=== PATIENT | male | born 1960 | race Caucasian/White ===

== ENCOUNTER 2023-04-29 06:50 | Emergency (ER) | payer OTHER, SELFPAY ==
[2023-04-29 07:01] VITALS: BP 182/113
--- NOTE | 2023-04-29 07:05 | ED.CVA ---
History of Present Illness
General
Chief Complaint: CVA/TIA Symptoms
Source: patient and ambulance crew
Exam Limitations: none
Time Seen by Provider: 04/29/23 06:59
Nursing documentation reviewed up to this point in time: agreed with
Onset of Stroke Symptoms
Onset of symptoms known: Yes
Date of onset of symptoms: 04/29/23
Time of onset of symptoms: 01:00
Time pt last seen normal is known: Yes
Date last time pt seen normal: 04/29/23
Time last time pt seen normal: 01:00
History of Present Illness
History of Present Illness:
62 yo female presents to the emergency department c/o left leg weakness, arm weakness, dizziness. Initial dizzy and difficulty walking at 1 am. He went back to bed, unclear if he was back to normal. Then he was dizzy and could not walk.
Past History
Past History
ED Past Medical History: HTN and Hypercholesterolemia
Social History
Tobacco: Non-smoker
Alcohol: Occasional
Drug: None
Living: with family
Review of Systems
Review of Systems
Allergies reviewed?: Yes
All Other Systems: Not applicable
Constitutional: Reports no symptoms
EENT: Reports no symptoms
Respiratory: Reports no symptoms
Cardiac: Reports no symptoms
ABD/GI: Reports no symptoms
: Reports no symptoms
Musculoskeletal: Reports no symptoms
Skin: Reports no symptoms
Neurological: Reports weakness
Endocrine: Reports no symptoms
Hematologic/Lymphatic: Reports no symptoms
Psychiatric: Reports no symptoms
Phy Exam
Physical Exam
Physical Exam:
Physical Exam
General: no apparent distress, not acutely ill
Neck: supple. no meningeal signs. normal posterior pharynx
Heart: s1/s2 regular rate and rhythm, no murmur. equal radial
pulses.
HEENT: Pupils equal round reactive to light, EOMI
Lungs: no acute respiratory distress. clear bilaterally
Abdomen: normal bowel sounds. not tender. no CVAT
Neuro: alert and oriented. Left facial droop, left leg weakness, left arm weakness
Skin: no rash
Psychiatric: well kept. interactive and cooperative
Extremities: no edema. no calf tenderness. negative homans. good distal pulses
Scores
NIH Stroke Score
Level of Consciousness: 0 - Alert
LOC Questions: 0-Answers both correctly
LOC Commands: 0-Performs both correctly
Best Horizontal Gaze: 0-Normal
Visual Brock: 0=Normal, no visual loss
Facial Palsy: 2=Partial paralysis
Motor - Right Arm: 0=No drift 10 seconds
Motor - Left Arm: 2=Partial vs. gravity
Motor - Right Le-No drift 5 seconds
Motor - Left Le-None vs. gravity
Limb Ataxia: 0-Absent
Sensation: 0-Normal
Best Language: 0-No aphasia
Dysarthria: 1-Mild slurring
Extinction and Inattention: 0-No abnormality
Total Score:: 8
Course
Orders/Labs/Results
Orders:
Orders
04/29/23 07:03
EKG [Electrocardiogram (*1)] Urgent
Reason for Study: TIA/Stroke
CT Head W/o Cont STROKE ALERT Urgent
Comment:
Reason For Exam: left side weakness, facial droop [address] Head/Neck Ang STROKE ALERT Urgent
Comment:
Reason For Exam: left side weakness, facial droop 1 hour ago
Bedside Glucose- Treatment ONCE
Cardiac Monitoring- Treatment ONCE
Pulse Ox/cont/shift [RESP] Stat
Quantity: 1
04/29/23 07:04
Electrocardiogram (*1) Stat
Reason for Study: Other
Other Reason for Exam: neuro symptoms
EKG- Treatment ONCE
EKG- Treatment ONCE
IV Insert/Care/Rem.- Treatment PRN
04/29/23 07:20
CT Brain Perfusion Urgent
Comment:
Reason For Exam: left side weakness
04/29/23 07:39
Complete Blood Count/With Diff Urgent
Comprehensive Metabolic Panel Urgent
PTT Urgent
Prothrombin Time Urgent
04/29/23 07:52
Chest X-ray Portable [CR Chest Portable - 1 View] Stat
Comment:
Reason For Exam: tube placemwent
Reason Study Needs to be Portable: Unable to Transport
04/29/23 07:56
Propofol 1,000,000 Mcg/100 ml [Diprivan] 1,000,000 mcg in 100 ml .ROUTE .STK-MED
04/29/23 08:01
Propofol INFUSION Titrate NOW X 1 BOTTLE Propofol 1,000,000 Mcg/100 ml [Diprivan] 1,000,000 mcg in 100 ml IV NOW
Indication:: Light Sedation
Begin Infusion:: Now
Goal:: RASS 0 to -2
Maximum dose in mcg/kg/min:: 50
Initial dose based on RASS:: Yes
If RASS is:: +1 or pt hemodynamically unstable (SBP < 90mmHg), initiate at 10 mcg/kg/min
If RASS is:: +2, initiate at 20 mcg/kg/min
If RASS is:: greater than or equal to +3, initiate at 30 mcg/kg/min
Titration Instructions:: Titrate by 5-10 mcg/kg/min every 5 minutes until RASS 0 to -2 achieved.
Taper Instructions:: If RASS is at or below goal for 4 consecutive hours decrease infusion by
Taper Instructions:: 5-10 mcg/kg/min every 2 hours to off.
Over-sedation Instructions:: If CPOT 0-2 (at goal) AND RASS -3 to -5 (below goal) decrease sedative by
Over-sedation Instructions:: 50% first. If pain score remains at goal and RASS remains below goal in
Over-sedation Instructions:: 1 hour, decrease opioid infusion by 50%.
Notify provider:: immediately if patient exhibits signs/symptoms of propofol-related
Notify provider:: infusion syndrome.
Additional Instructions:: Patient MUST be mechanically ventilated and MUST receive analgesia.
04/29/23 08:02
Triglycerides Routine
Comment: baseline levels with propofol infusion
Abnormal Lab Results
04/29/23
07:39
WBC 12.0 H 10^3/uL
(4.8-10.8)
RBC 4.67 L 10^6/uL
(4.70-6.10)
Hct 38.9 L %
(39.0-52.0)
MPV 10.5 H fL
(7.4-10.4)
Absolute Neuts (auto) 9.2 H 10^3/uL
(1.4-6.5)
Absolute Monos (auto) 0.8 H 10^3/uL
(0.1-0.6)
Neutrophils % 76.2 H %
(42.2-75.2)
Lymphocytes % 16.1 L %
(20.5-51.1)
04/29/23 07:39
Procedures
Intubations
Procedure completed by: Dr. Lozano
Method of Intubation: glidescope
Tube size (cm): 8.0
Placement confirmed by: auscutation, CXR, capnography and direct visualization
Breath sounds after intubation: equal
Intubation complications: no complications
MDM/Problems Addressed
Differential Diagnosis Includes:
intracranial hemorrhage, acute cva
MDM/Problems Addressed:
62-year-old male with acute CVA, symptoms began at about 1 AM. Last normal seen at midnight. Intubated for airway protection. Patient was having difficulty handling his own secretions. Stroke alert called upon examining patient. Discussed with
Dr. Johnsno, who recommends transfer to [facility]. 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
Chronic conditions affecting care: HTN
Acute Exacerbation and/or Progression of Chronic Illness: HTN
*Radiology
Radiology exam reviewed: radiology read reviewed (CT PE with 20 mL penumbra, no ischemic core, CT angiography shows bilateral V4 occlusions, no acute findings on CT head noncontrast)
*EKG
Interpreted by ED Provider?: Yes
EKG Intrepretation Date: 04/29/23
EKG Intrepretation Time: 07:44
Interpretation: abnormal
Comparison EKG: no comparison EKG present
Heart Rate: 78
Rate: normal
Rhythm: sinus
[place]: normal axis
Interval: normal interval
QRS Pattern: normal QRS
Ischemia: non-specific ST changes
*Inserting Press Operator Interpretation
Rate: normal
Interpretation: normal
Heart Rate: 80
Rhythm: sinus
*Critical Care Note
Total Time (30-74mins, 75-104mins- exclusive of procedures): 60
comment:
Critical care statement: A total of 60 minutes of critical care time was provided for this patient. This includes management of unstable vital signs, evaluation of the patient at bedside, reviewing the patient's pertinent medical records, discussion
with consultants, review of old EKGs and review of pertinent medical records. This time with separate from time utilized to perform the aforementioned documented procedures
ED Attending Note
-
Portions of this chart may have been created with voice recognition software.� Occasional wrong word or��sound alike� substitutions may have occurred due to the inherent limitations of voice recognition software.
Discharge Plan
Departure
Patient Disposition: Acute Care Hospital
Date of Disposition: 04/29/23
Time of Disposition: 07:56
Patient with high blood pressure during this ER visit?: Yes
Condition: Critical
Discharge Problem:
Acute cerebrovascular accident (CVA)
Hospital Transfer
Other hospital: [facility]
I certify that the patient requires transfer: Yes
Discussed case with accepting physician: Angela
Reason for transfer: higher level of care, availability of service and specialties available
Interventions
Interventions:
ED- Neurological Assessment Last Done: 04/29/23 07:57
ED- Cardiac Assessment Last Done: 04/29/23 07:57
ED Swallowing Screen Last Done: 04/29/23 07:57
[2023-04-29 07:10] VITALS: BP 162/99
[2023-04-29 07:45] LABS: % Basophils 0.4 % (0-2); % Eosinophils 0.4 % (0-6); % Immature Granulocytes 0.3 % (0-0.5); % Lymphocytes 16.1 % (20.5-51.1); % Monocytes 6.6 % (1.7-9.3); % Neutrophils 76.2 % (42.2-75.2); Absolute Basophils 0.1 10^3/uL (0-0.2); Absolute Eosinophils 0.1 10^3/uL (0-0.7); Absolute Lymphocytes 1.9 10^3/uL (1.2-3.4); Absolute Monocytes 0.8 10^3/uL (0.1-0.6); Absolute Neutrophils 9.2 10^3/uL (1.4-6.5); Hematocrit 38.9 % (39.0-52.0); Hemoglobin 13.7 g/dL (13.0-18.0); Mean Corp Hgb Conc. 35.2 g/dL (33.0-37.0); Mean Corpuscular Hgb 29.3 pg (27.0-31.0); Mean Corpuscular Volume 83.3 fL (80.0-94.0); Mean Platelet Volume 10.5 fL (7.4-10.4); Nucleated Red Blood Cells % 0 % (-); Platelet Count 211 10^3/uL (130-400); Red Blood Cell Count 4.67 10^6/uL (4.70-6.10); Red Cell Dist. Width 11.9 % (11.5-14.5)
[2023-04-29 07:48] VITALS: BP 200/101
[2023-04-29 07:56] LABS: INR 1.09; PT 13.9 Sec (11.4-14.6)
[2023-04-29 07:57] LABS: APTT 30.4 Sec (23.4-35.0)
[2023-04-29 08:00] VITALS: BP 194/104
[2023-04-29 08:07] LABS: ALT (SGPT) 16 U/L (0-50); AST (SGOT) 18 U/L (17-59); Albumin 3.7 g/dl (3.5-5.0); Alkaline Phosphatase 76 U/L (38-126); Blood Urea Nitrogen 12 mg/dl (9-20); Calcium 9.1 mg/dl (8.4-10.2); Carbon Dioxide 23 mmol/L (22-30); Chloride 102 mmol/L (98-107); Glucose 194 mg/dl (70-99); Potassium 3.2 mmol/L (3.5-5.1); Sodium 136 mmol/L (135-145); Total Bilirubin 0.8 mg/dl (0.2-1.3); Total Protein 6.4 g/dl (6.3-8.2); eGFR > 60.00
[2023-04-29] MEDS: DIPRIVAN 100 IV (08:13)
[2023-04-29 08:15] VITALS: BP 198/112
[2023-04-29 08:30] VITALS: BP 209/103
--- NOTE | 2023-04-29 09:39 | W.PN.UPDATE ---
Update Note
Progress Note Update
Called for stroke alert upon patient arrival. Patient's girlfriend reports that his last known normal was midnight; noted dizziness and gait ataxia at 1am, improved somewhat over time but he did not clearly return to his baseline. At 5am his
symptoms worsened again, stroke alert called at 7am. Out of window for TNK as he had been observed to have symptoms for previous 6 hours/had not clearly returned to his baseline. CTA head/neck showed bilateral V4 occlusions per verbal read given
to me when I called [facility]; CTP completed with no core noted, penumbra of 20mL. Recommended emergent transfer to tertiary care center for intervention; accepted at [facility].
[2023-04-29 15:47] LABS: Triglycerides 87 mg/dl (10-149)
== END 2023-04-29 08:50 | disposition short-term general hospital (02) ==
LOC: EMR 06:50
PROVIDERS: EMERGENCY PHYSICIAN Emergency Medicine; OTHER PHYSICIAN Psychiatry & Neurology Neurology
DX: R55 Syncope and collapse (principal); I63.9 Cerebral infarction, unspecified; G83.14 Monoplegia of lower limb affecting left nondominant side; R47.81 Slurred speech; I65.03 Occlusion and stenosis of bilateral vertebral arteries; R29.810 Facial weakness; I10 Essential (primary) hypertension; E78.00 Pure hypercholesterolemia, unspecified
CPT/HCPCS: 99291; 31500; 96374; 51702; 0042T; 70450; 70496; 70498; 71045; 80053; 84478; 85025; 85610; 85730; 93005; Q9967